=== PATIENT | female | born 1980 | race American Indian/Alaskan Native ===

== ENCOUNTER 2019-06-09 08:43 | Emergency (ER) | payer SELFPAY ==
[2019-06-09 08:57] VITALS: BP 112/71
--- NOTE | 2019-06-09 10:27 | Vascular Lab Report ---
DUPLEX DOPPLER LOWER EXTREMITY VEINS, LEFT INDICATION: LLE pain and swelling. TECHNIQUE: Duplex doppler imaging was performed through the veins of the left lower extremity using venous compr ession and other maneuvers. COMPARISON: None available. FINDINGS: Common femoral vein: Negative. Superficial femoral vein: Negative. Popliteal vein: Negative. Calf veins: Negative. Additional findings: None. IMPRESSION: Negative for DVT. Signer Name: Herb Darnell MD Signed: 06/09/2019 10:23 AM Workstation Name: [id number]
[2019-06-09 13:18] LABS: Basophils % (Auto) 0.4 % (0.0-1.8); Eosinophils # (Auto) 0.1 K/mm3 (0.0-0.4); Eosinophils % (Auto) 2.2 % (0.0-4.3); Hematocrit 31.5 % (30.3-42.9); Hemoglobin 10.8 gm/dl (10.1-14.3); Lymphocytes % (Auto) 30.2 % (13.4-35.0); Mean Corpuscular HGB Conc 34 % (30-34); Mean Corpuscular Volume 86 fl (79-97); Monocytes # (Auto) 0.5 K/mm3 (0.0-0.8); Monocytes % (Auto) 7.8 % (0.0-7.3); Platelet Count 294 K/mm3 (140-440); Red Blood Count 3.67 M/mm3 (3.65-5.03); Red Cell Distribution Width 15.4 % (13.2-15.2)
[2019-06-09 13:44] LABS: BUN/Creatinine Ratio 19; Blood Urea Nitrogen 13 mg/dL (7-17); Calcium 9.6 mg/dL (8.4-10.2); Hemolysis Index 2
[2019-06-09 13:50] LABS: INR 0.97 (0.87-1.13)
[2019-06-09 13:51] LABS: Alanine Aminotransferase < 5 units/L (7-56); Partial Thromboplastin Time 28.3 Sec. (24.2-36.6)
--- NOTE | 2019-06-09 14:03 | XRay Report ---
CHEST 2 VIEWS INDICATION / CLINICAL INFORMATION: Chest pain. COMPARISON: None available. FINDINGS: SUPPORT DEVICES: None. HEART / MEDIASTINUM: No significant abnormality. LUNGS / PLEURA: No significant pulmonary or pleural abnormality. No pneumothorax. ADDITIONAL FINDINGS: No significant additional findings. IMPRESSION: 1. No acute findings. Signer Name: Guille Karimi MD Signed: 06/09/2019 1:59 PM Workstation Name: [id number]
--- NOTE | 2019-06-09 15:10 | Emergency Department Report ---
ED General Adult HPI - General Chief complaint: Extremity Injury, Lower Stated complaint: POSS CLOT LFT LEGS PAIN/SOB Time Seen by Provider: 06/09/19 12:32 Source: patient Mode of arrival: Ambulatory Limitations: No Limitations - History of Present Illness Initial comments: Patient is a 39-year-old female presents emergency room with complaints of left- sided calf pain that began 3 days ago. She states that she also has chest pain and shortness of breath that began this morning. She states that the chest pain as an intermittent sharp pain. She denies any fever, fall, injury, cough, hemoptysis, recent travel, recent surgery. She states she has a past medical history of DVT in 2005 during her and was placed on heparin at that time. she states he also has a history of hypertension, GERD, anemia. She states she has never had to be transfused before. She denies any allergies medications. She denies any hormone use. She is a nonsmoker. She is a nondrinker. She denies drug use. Last menstrual cycle 3 weeks ago. Severity scale (0 -10): 8 - Related Data Home Medications Medication Instructions Recorded Confirmed Last Taken Pnv with Ca,No.72/Iron/FA 1 tab PO DAILY 12/21/14 12/21/14 12/20/14 19:00 [ Plus Tablet] Previous Rx's Medication Instructions Recorded Last Taken Type Ferrous Sulfate [Feosol 325 MG tab] 325 mg PO BID #60 tablet 12/22/14 Unknown Rx Ibuprofen [Motrin 600 MG tab] 600 mg PO Q6H PRN #30 tablet 12/22/14 Unknown Rx Vit-Fe Fumar-FA [ 1 tab PO QDAY #30 tablet 12/22/14 Unknown Rx Vitamin] oxyCODONE /ACETAMINOPHEN [Percocet 1 tab PO Q6HR PRN #30 tablet 12/22/14 Unknown Rx 5/325 mg] Cyclobenzaprine [Flexeril] 10 mg PO QHS PRN #10 tablet 06/09/19 Unknown Rx Naproxen [EC-Naprosyn] 500 mg PO BID PRN #14 tablet. 06/09/19 Unknown Rx Allergies Allergy/AdvReac Type Severity Reaction Status Date / Time No Known Allergies Allergy Verified 12/21/14 11:15 ED Review of Systems ROS: Stated complaint: POSS CLOT LFT LEGS PAIN/SOB Other details as noted in HPI Comment: All other systems reviewed and negative ED Past Medical Hx - Past Medical History Hx Congestive Heart Failure: No Hx Diabetes: No Hx Deep Vein Thrombosis: No Hx Renal Disease: No Hx Sickle Cell Disease: No Hx Seizures: No Hx Asthma: Yes Hx COPD: No Hx HIV: No - Social History Smoking Status: Never Smoker - Medications Home Medications: Home Medications Medication Instructions Recorded Confirmed Last Taken Type Pnv with Ca,No.72/Iron/FA 1 tab PO DAILY 12/21/14 12/21/14 12/20/14 19:00 History [ Plus Tablet] Ferrous Sulfate [Feosol 325 MG tab] 325 mg PO BID #60 tablet 12/22/14 Unknown Rx Ibuprofen [Motrin 600 MG tab] 600 mg PO Q6H PRN #30 tablet 12/22/14 Unknown Rx Vit-Fe Fumar-FA [ 1 tab PO QDAY #30 tablet 12/22/14 Unknown Rx Vitamin] oxyCODONE /ACETAMINOPHEN [Percocet 1 tab PO Q6HR PRN #30 tablet 12/22/14 Unknown Rx 5/325 mg] Cyclobenzaprine [Flexeril] 10 mg PO QHS PRN #10 tablet 06/09/19 Unknown Rx Naproxen [EC-Naprosyn] 500 mg PO BID PRN #14 tablet. 06/09/19 Unknown Rx ED Physical Exam - General Limitations: No Limitations General appearance: alert, in no apparent distress - Head Head exam: Present: atraumatic, normocephalic - Eye Eye exam: Present: normal appearance - ENT ENT exam: Present: mucous membranes moist - Respiratory Respiratory exam: Present: normal lung sounds bilaterally. Absent: respiratory distress, wheezes, rales, rhonchi, stridor, chest wall tenderness, accessory muscle use, decreased breath sounds, prolonged expiratory - Cardiovascular Cardiovascular Exam: Present: regular rate, normal rhythm, normal heart sounds. Absent: systolic murmur, diastolic murmur, rubs, gallop - Extremities Exam Extremities exam: Present: other (TTP of the left calf, no edema of the BLE, BLE are equal in size, no deformity, no ecchymosis, compartments are soft, neurovacsularly intact, no skin changes, no erythema, no increased warmth). Absent: pedal edema - Neurological Exam Neurological exam: Present: alert, oriented X3 - Psychiatric Psychiatric exam: Present: normal affect, normal mood - Skin Skin exam: Present: warm, dry, intact ED Course Vital Signs 06/09/19 08:54 Temperature 98.8 F Pulse Rate 103 H Respiratory 20 Rate Blood Pressure 112/71 [Left] O2 Sat by Pulse 98 Oximetry ED Medical Decision Making - Lab Data Result diagrams: 06/09/19 12:57 06/09/19 12:57 Lab Results 06/09/19 06/09/19 06/09/19 Range/Units 12:57 12:57 12:57 WBC 6.7 (4.5-11.0) K/mm3 RBC 3.67 (3.65-5.03) M/mm3 Hgb 10.8 (10.1-14.3) gm/dl Hct 31.5 (30.3-42.9) % MCV 86 (79-97) fl MCH 29 (28-32) pg MCHC 34 (30-34) % RDW 15.4 H (13.2-15.2) % Plt Count 294 (140-440) K/mm3 Lymph % (Auto) 30.2 (13.4-35.0) % [place] % (Auto) 7.8 H (0.0-7.3) % Eos % (Auto) 2.2 (0.0-4.3) % Baso % (Auto) 0.4 (0.0-1.8) % Lymph # 2.0 (1.2-5.4) K/mm3 [place] # 0.5 (0.0-0.8) K/mm3 Eos # 0.1 (0.0-0.4) K/mm3 Baso # 0.0 (0.0-0.1) K/mm3 Seg Neutrophils % 59.4 (40.0-70.0) % Seg Neutrophils # 4.0 (1.8-7.7) K/mm3 PT 13.0 (12.2-14.9) Sec. INR 0.97 (0.87-1.13) APTT 28.3 (24.2-36.6) Sec. Sodium 137 (137-145) mmol/L Potassium 4.0 (3.6-5.0) mmol/L Chloride 99.5 (98-107) mmol/L Carbon Dioxide 22 (22-30) mmol/L Anion Gap 20 mmol/L BUN 13 (7-17) mg/dL Creatinine 0.7 (0.7-1.2) mg/dL Estimated GFR > 60 ml/min BUN/Creatinine Ratio 19 % Glucose 90 (65-100) mg/dL Calcium 9.6 (8.4-10.2) mg/dL Total Bilirubin 0.50 (0.1-1.2) mg/dL AST 11 (5-40) units/L ALT < 5 L (7-56) units/L Alkaline Phosphatase 56 (35-129) units/L Troponin T < 0.010 (0.00-0.029) ng/mL Total Protein 8.1 (6.3-8.2) g/dL Albumin 4.0 (3.9-5) g/dL Albumin/Globulin Ratio 1.0 % HCG, Qual (Negative) 06/09/19 06/09/19 Range/Units 12:57 14:52 WBC (4.5-11.0) K/mm3 RBC (3.65-5.03) M/mm3 Hgb (10.1-14.3) gm/dl Hct (30.3-42.9) % MCV (79-97) fl MCH (28-32) pg MCHC (30-34) % RDW (13.2-15.2) % Plt Count (140-440) K/mm3 Lymph % (Auto) (13.4-35.0) % [place] % (Auto) (0.0-7.3) % Eos % (Auto) (0.0-4.3) % Baso % (Auto) (0.0-1.8) % Lymph # (1.2-5.4) K/mm3 [place] # (0.0-0.8) K/mm3 Eos # (0.0-0.4) K/mm3 Baso # (0.0-0.1) K/mm3 Seg Neutrophils % (40.0-70.0) % Seg Neutrophils # (1.8-7.7) K/mm3 PT (12.2-14.9) Sec. INR (0.87-1.13) APTT (24.2-36.6) Sec. Sodium (137-145) mmol/L Potassium (3.6-5.0) mmol/L Chloride (98-107) mmol/L Carbon Dioxide (22-30) mmol/L Anion Gap mmol/L BUN (7-17) mg/dL Creatinine (0.7-1.2) mg/dL Estimated GFR ml/min BUN/Creatinine Ratio % Glucose (65-100) mg/dL Calcium (8.4-10.2) mg/dL Total Bilirubin (0.1-1.2) mg/dL AST (5-40) units/L ALT (7-56) units/L Alkaline Phosphatase (35-129) units/L Troponin T < 0.010 (0.00-0.029) ng/mL Total Protein (6.3-8.2) g/dL Albumin (3.9-5) g/dL Albumin/Globulin Ratio % HCG, Qual Negative (Negative) - EKG Data EKG shows normal: sinus rhythm, axis, intervals Rate: normal - EKG Data 06/09/19 15:18 sinus arrhythmia non specific T wave inversion in V1, V2 poor R wave progression no STEMI no prior ekg for comparison 06/09/19 16:35 repeat EKG HR 63 normal sinus rhythm otherwise no change from previous - Radiology Data Radiology results: report reviewed CHEST 2 VIEWS INDICATION / CLINICAL INFORMATION: Chest pain. COMPARISON: None available. FINDINGS: SUPPORT DEVICES: None. HEART / MEDIASTINUM: No significant abnormality. LUNGS / PLEURA: No significant pulmonary or pleural abnormality. No pneumothorax. ADDITIONAL FINDINGS: No significant additional findings. IMPRESSION: 1. No acute findings. Signer Name: Guille Karimi MD Signed: 06/09/2019 1:59 PM Workstation Name: [id number] Transcribed By: DT Dictated By: Meño Karimi MD Electronically Authenticated By: Meño Karimi MD Signed Date/Time: 06/09/19 1352 DD/ 1358 TD/TT: CT angio chest INDICATION / CLINICAL INFORMATION: CP, SOB, left calf pain, hx of DVT in 2005. TECHNIQUE: Axial CT images were obtained after injection of Isovue-300, 100 cc IV injection. IV contrast using CTA protocol. 3 plane MIP / 3D reconstructions were produced. All CT scans at this location are performed using CT dose reduction for ALARA by means of automated exposure control. COMPARISON: None available. FINDINGS: The lungs contain no mass, infiltrate or pleural fluid. Negative for mediastinal mass or adenopathy. Imaging of the upper abdomen is unremarkable. Negative for aneurysm, dissection or pulmonary embolus. IMPRESSION: Negative for pulmonary embolus or pneumonia. Signer Name: Herb Darnell MD Signed: 06/09/2019 3:48 PM Workstation Name: [id number] Transcribed By: KIP Dictated By: Herb Darnell MD Electronically Authenticated By: Herb Darnell MD Signed Date/Time: 06/09/19 1548 DD/ 1542 TD/TT: DUPLEX DOPPLER LOWER EXTREMITY VEINS, LEFT INDICATION: LLE pain and swelling. TECHNIQUE: Duplex doppler imaging was performed through the veins of the left lower extremity using venous compression and other maneuvers. COMPARISON: None available. FINDINGS: Common femoral vein: Negative. Superficial femoral vein: Negative. Popliteal vein: Negative. Calf veins: Negative. Additional findings: None. IMPRESSION: Negative for DVT. Signer Name: Herb Danrell MD Signed: 06/09/2019 10:23 AM Workstation Name: [id number] Transcribed By: ES Dictated By: Herb Darnell MD Electronically Authenticated By: Herb Darnell MD Signed Date/Time: 06/09/19 1023 DD/ 1022 TD/TT: - Medical Decision Making Patient is a 39-year-old female presents emergency room with complaints of left- sided calf pain that began 3 days ago. She states that she also has chest pain and shortness of breath that began this morning. She states that the chest pain as an intermittent sharp pain. She denies any fever, fall, injury, cough, hemoptysis, recent travel, recent surgery. She states she has a past medical history of DVT in 2006 during her and was placed on heparin at that time. she states he also has a history of hypertension, GERD, anemia. She states she has never had to be transfused before. She denies any allergies medications. She denies any hormone use. She is a nonsmoker. She is a non drinker. She denies drug use. Last menstrual cycle 3 weeks ago. vitals with mild tachycardia at 103. on exam: TTP of the left calf, no edema of the BLE, BLE are equal in size, no deformity, no ecchymosis, compartments are soft, neurovacsularly intact, no skin changes, no erythema, no increased warmth, breath sounds are clear bilaterally, no w/r/r. EKG sinus arrhythmia non specific T wave inversion in V1, V2, poor R wave progression, no STEMI, no prior ekg for comparison. second EKG: HR 63, normal sinus rhythm otherwise no change from previous. labs are normal. troponin is negative x2. due to history of DVT, tachycardia, calf pain, cp, and sob CTA chest ordered to rule out PE. CXR: 1. No acute findings. CTA chest: Negative for pulmonary embolus or pneumonia. US LLE: Negative for DVT. heart score is 2, EKG without signs of STEMI, trop is negative x2, pt will be referred for outpatient ca rdiology follow up and further evaluation. pt given prescriptions for flexeril and naproxen for her calf discomfort. advised pt to please take medication as prescribed as needed. Do not drive or operate machinery while taking muscle relaxer. May use ice pack, heating pad, rest, epsom salt bath. Follow-up with a body coverer. Follow-up with a primary care doctor. Return to the emergency room for any new or worsening symptoms. - Differential Diagnosis ACS, PE, aortic dissection, DVT, calf strain, PTX, CHF, cardiomyopathy Critical care attestation.: If time is entered above; I have spent that time in minutes in the direct care of this critically ill patient, excluding procedure time. ED Disposition Clinical Impression: Pain of left calf, SOB (shortness of breath) Chest pain Qualifiers: Chest pain type: unspecified Qualified Code(s): R07.9 - Chest pain, unspecified Disposition: DC-01 TO HOME OR SELFCARE Is pt being admited?: No Does the pt Need Aspirin: No Condition: Stable Instructions: Chest Pain (ED), Muscle Strain (ED), Dyspnea (ED) Additional Instructions: please take medication as prescribed as needed. Do not drive or operate machinery while taking muscle relaxer. May use ice pack, heating pad, rest, epsom salt bath. Follow-up with a body coverer. Follow-up with a primary care doctor. Return to the emergency room for any new or worsening symptoms. Prescriptions: Cyclobenzaprine [Flexeril] 10 mg PO QHS PRN #10 tablet PRN Reason: Muscle Spasm Naproxen [EC-Naprosyn] 500 mg PO BID PRN #14 tablet. PRN Reason: pain Referrals: LOLITA CROCKER MD [Primary Care Provider] - 2-3 Days LAMONT BUSTAMANTE MD [Staff Physician] - 2-3 Days Time of Disposition: 16:38 Print Language: PU[place] RICAN
--- NOTE | 2019-06-09 15:53 | Cat Scan Report ---
CT angio chest INDICATION / CLINICAL INFORMATION: CP, SOB, left calf pain, hx of DVT in 2006. TECHNIQUE: Axial CT images were obtained after injection of Isovue-300, 100 cc IV injection. IV contrast using C TA protocol. 3 plane MIP / 3D reconstructions were produced. All CT scans at this location are perfor med using CT dose reduction for ALARA by means of automated exposure control. COMPARISON: None available. FINDINGS: The lungs contain no mass, infiltrate or pleural fluid. Negative for mediastinal mass or adenopathy. Imaging of the upper abdomen is unremarkable. Negative for aneurysm, dissection or pulmonary embolus. IMPRESSION: Negative for pulmonary embolus or pneumonia. Signer Name: Herb Darnell MD Signed: 06/09/2019 3:48 PM Workstation Name: [id number]
== END 2019-06-09 17:59 | disposition home or self-care (01) ==
LOC: ED 08:43
DX: M79.662 Pain in left lower leg (principal); R06.02 Shortness of breath; R07.89 Other chest pain; J45.909 Unspecified asthma, uncomplicated; Z79.899 Other long term (current) drug therapy
CPT/HCPCS: 36415; 71046; 71275; 80053; 84484; 84703; 85025; 85610; 85730; 93005; 93010; 93971; 99285; Q9967